=== PATIENT | female | born 2000 | race Caucasian/White ===

== ENCOUNTER 2021-05-04 13:29 | Emergency (ER) | payer OTHER, SELFPAY ==
[2021-05-04 13:37] VITALS: BP 123/60; PULSE 89; RESP 18; TEMP 36.8; O2SAT 99; BMI 24.6
[2021-05-04 14:25] LABS: Appearance Urine HAZY; Color Urine YELLOW; Glucose Urine UA NEG (NEG); Leukocyte Esterase Urine NEG (NEG); Nitrite Urine NEG (NEG); Specific Gravity - Urine 1.025 (1.005-1.025); UACC Culture Trigger NO; Urine Blood 3+ (NEG); Urine Ketones NEG (NEG); Urine Protein NEG (NEG-TRACE)
[2021-05-04 14:26] LABS: UPreg QC Valid YES; Urine Pregnancy NEGATIVE (NEGATIVE)
[2021-05-04 14:30] LABS: HCG Quantitative < 2 mIU/mL
[2021-05-04 14:36] LABS: Strep A Nucleic Acid Negative (Negative)
[2021-05-04 14:41] LABS: Bacteria Urine TRACE /LPF; Mucus Urine 2+ /LPF; RBC Urine 30-49 /HPF (0); Squamous Epithelial Cell Urine 3+ /LPF
--- NOTE | 2021-05-04 14:42 | ED.GENADULT ---
HPI - General Adult General Chief complaint: General Medical Stated complaint: SORE THROAT VOMITING Time Seen by Provider: 05/04/21 13:50 Source: patient Mode of arrival: ambulatory Limitations: no limitations History of Present Illness HPI narrative: 21-year-old female presenting to the ED with multiple complaints which include a sore throat for the past 3-4 days and her 2nd complaint is she wants a test by blood because she has not had her period this month and she usually has in the beginning of every month. Last month she only had on the and the for 2 days and this is why she is concerned. She reports that she took 3 home tests and they were negative. Then she took of a 4th test and it failed on her therefore she is unsure if she is currently and wants blood test for . She also reports she was recently tested for COVID and was negative and does not want to be tested for COVID again. She denies any fevers, chills, dizziness, headaches, ear pain, trouble swallowing or breathing, chest pain or shortness of breath, abdominal pain, nausea/vomiting / diarrhea, constipation, rashes, recent travel or sick contacts, lower extremity edema or calf tenderness, abnormal vaginal bleeding, abnormal vaginal discharge, hematuria, dysuria, urinary frequency / urgency or any other symptoms complaints or concerns at this time. MD complaint: Sore throat and miss menstrual period wants test Related Data Previous Rx's Medication Instructions Recorded azithromycin 250 mg tablet See Rx Instructions .ROUTE 05/04/21 .COMPLEX #6 tab Allergies Allergy/AdvReac Type Severity Reaction Status Date / Time No Known Allergies Allergy Unverified 02/13/20 18:48 [No Known Allergies*] Review of Systems Review of Systems: Constitutional : No Weight loss, No Fever, No Chills, No Night Sweats, No Fatigue, No Malaise ENT/Mouth : No Hearing loss, No Ear Pain, No Nasal Congestion, No Sinus Pain, No Hoarseness, + sore throat, No Rhinorrhea, No Swallowing Difficulty Eyes: No Eye Pain, No Swelling, No Redness, No Foreign Body, No Discharge, No Vision Changes Cardiovascular : No Chest Pain, No SOB, No Dyspnea on Exertion, No Orthopnea, No Edema, No Palpitations Respiratory : No Cough, No Sputum, No Wheezing, No Smoke Exposure, No Dyspnea Gastrointestinal : No Nausea, No Vomiting, No Diarrhea, No Constipation, No abdominal Pain, No Hematochezia, No Melena Genitourinary : no irregular bleeding, No Dysuria, No Urinary Frequency, No Hematuria, No Urinary Incontinence, No Urgency, No Flank Pain, No Urinary Flow Changes, No Hesitancy Musculoskeletal : No joint pain, No Myalgias, No Joint Swelling Skin : No Skin Lesions, No rash Neuro : No Weakness, No Numbness, No Paresthesias, No Loss of Consciousness, No Dizziness, No Headache Psych : No Anxiety/Panic, No Depression, No SI/HI/AH/VH, No Social Issues, Heme/Lymph: No Bruising, No Bleeding,No Lymphadenopathy Endocrine : No Polyuria, No Polydipsia, No Temperature Intolerance Yes all other systems are reviewed and are negative [facility] Past Medical History Attestation statement: The following information was validated with the patient. Social History Social History Advance Directives: No Advance Directives Information Provided: No Physical Exam Vital Signs: Vital Signs: Last Vital Signs Temp 98.2 F 05/04/21 13:37 Pulse 89 05/04/21 13:37 Resp 18 05/04/21 13:37 BP 123/60 05/04/21 13:37 Pulse Ox 99 05/04/21 13:37 BMI result Body Mass Index 24.6 vital signs have been reviewed as normal and appeared to be correct. Blood pressure normal. Heart rate normal. Respiration rate normal. Temperature normal. Oxygen saturation normal. Appearance: Alert. Oriented X3. No acute distress. Head: Normal external exam. Normocephalic. Atraumatic. Eyes: PERRLA. EOMI. Conjunctiva and sclera normal. Eyelids normal. ENT: EAC normal. TM's Normal. Posterior pharynx mildly erythematous although no exudate is noted. The rest of the Pharynx is within normal limits. Uvula midline. Moist mucous membranes. No trismus noted. No drooling noted. No muffled voice noted. Neck: Normal inspection. Neck supple. FROM. No adenopathy. Thyroid Normal. No meningeal signs. No neck mass noted. CVS: Normal heart rate and rhythm. Heart sound normal. Pulses normal throughout. No murmurs/rales/gallops. Respiratory: No respiratory distress. Painless inspiration. Breath sounds normal. No wheezes/rales/rhonchi noted. Chest nontender. No accessory muscle usage noted or decreased air movement noted. Abdomen: Soft and nontender. Bowel sounds normal in all 4 quadrants. No distention noted. No organomegaly noted. No visible injury noted. Back: No CVA tenderness. Full range of motion noted. No rashes/lesion/induration/fluctuance or signs of infection noted. Skin: Skin warm and dry. Normal skin color. Normal skin turgor. No rashes/lesions/lacerations noted. Extremities: Extremities exhibit normal range of motion. Extremities nontender. Neuro: Oriented X 3. No motor deficit. No sensory deficit. Reflexes normal. Normal steady gait. No focal neuro deficits noted. Vascular: + radial pulses Normal cap refill. No cyanosis noted to upper extremity nails Course Course Course Narrative: 21-year-old female presenting to the ED with multiple complaints which include a sore throat for the past 3-4 days and her 2nd complaint is she wants a test by blood because she has not had her period this month and she usually has in the beginning of every month. Last month she only had on the and the th for 2 days and this is why she is concerned. She reports that she took 3 home tests and they were negative. Then she took of a 4th test and it failed on her therefore she is unsure if she is currently and wants blood test for . She also reports she was recently tested for COVID and was negative and does not want to be tested for COVID again. Rapid strep negative. Serum quant negative for . Urine negative. Therefore explained this to the patient explained to her that she is not . I also offered a Monospot and she accepted. We will obtain a Monospot and DC home I will call her with only positive results and she understands this. Will DC home with antibiotics and symptomatic treatment for possible pharyngitis along with instructions return if any new or worsening symptoms to follow up with primary care provider. Patient understands agrees with this plan. Medical Decision Making Medical Records Medical records reviewed: Yes I reviewed the patient's medical records. Lab Data Lab results reviewed: Yes I reviewed the patient's lab results. Labs: Lab Results 05/04/21 05/04/21 05/04/21 Range/Units 13:42 13:55 14:10 Beta HCG, Quant < 2 mIU/mL Urine Color Urine Appearance Urine pH (5.0-8.0) Ur Specific [place] (1.005-1.025) Urine Protein (NEG-TRACE) MG/DL Urine Glucose (UA) (NEG) MG/DL Urine Ketones (NEG) MG/DL Urine Blood (NEG) Urine Nitrite (NEG) Ur Leukocyte Esterase (NEG) Urine RBC (0) /HPF Urine WBC (0-4) /HPF Ur Squamous Epith Cells /LPF Urine Bacteria /LPF Urine Mucus /LPF Urine Test NEGATIVE (NEGATIVE) S. pyogenes GrpA ERIC Cancelled 05/04/21 05/04/21 Range/Units 14:10 14:20 Beta HCG, Quant mIU/mL Urine Color YELLOW Urine Appearance HAZY Urine pH 6.0 (5.0-8.0) Ur Specific [place] 1.025 (1.005-1.025) Urine Protein NEG (NEG-TRACE) MG/DL Urine Glucose (UA) NEG (NEG) MG/DL Urine Ketones NEG (NEG) MG/DL Urine Blood 3+ H (NEG) Urine Nitrite NEG (NEG) Ur Leukocyte Esterase NEG (NEG) Urine RBC 30-49 H (0) /HPF Urine WBC 1-4 (0-4) /HPF Ur Squamous Epith Cells 3+ /LPF Urine Bacteria TRACE /LPF Urine Mucus 2+ /LPF Urine Test (NEGATIVE) S. pyogenes GrpA ERIC Negative Discharge Plan Discharge Clinical Impression: Pharyngitis Patient Disposition: Home, Self-Care Instructions: Pharyngitis (ED) Additional Instructions: you have pending lab results if any are positive you will be contacted. If the result is negative you will not be contacted. Return if any new or worsening symptoms. Follow up with your primary care provider. Prescriptions: New azithromycin 250 mg tablet See Rx Instructions .ROUTE .COMPLEX Qty: 6 RF: 0 Referrals: Physician,Unknown J [Primary Care Provider] - 2 days (your pcp) Print Language: Armenian
[2021-05-04 14:52] VITALS: BP 105/69; PULSE 89; RESP 14; TEMP 37.1; O2SAT 100
[2021-05-04 15:30] LABS: Monotest Negative (Negative)
== END 2021-05-04 15:03 | disposition home or self-care (01) ==
PROVIDERS: Physician Assistant Medical; Emergency Provider Emergency Medicine
DX: J02.8 Acute pharyngitis due to other specified organisms (principal); Z79.899 Other long term (current) drug therapy
CPT/HCPCS: 36415; 81001; 81025; 84702; 86308; 87651; 99283